=== PATIENT | male | born 1950 | race Caucasian/White ===

== ENCOUNTER 2018-06-05 14:25 | Emergency (ER) | payer MEDICARE, OTHER ==
[~2018-06-05] VITALS: Ht 182.9 cm; Wt 104.3 kg
--- NOTE | 2018-06-05 15:11 | NUR ---
pain and swelling to L wrist/FA s/p trip and fall while playing basketball. PT AAOX3, VSS. DENIES ANY OTHER DISCOMFORT @ THIS TIME. WILL CONT TO MONITOR.
--- NOTE | 2018-06-05 16:50 | NUR ---
Patient discharged to home in stable condition. Written and verbal after care instructions given. Patient verbalizes understanding of instruction. LT WRIST POSTERIOR SPLINT INTACT W/ GOOD CMS. PT STABLE, NAD UPON LEAVING ED.
[2018-06-05 16:53] VITALS: BP 128/75
== END 2018-06-05 16:54 | disposition home or self-care (01) ==
LOC: ER 14:30
DX: S52.592A Other fractures of lower end of left radius, initial encounter for closed fracture (principal); W01.0XXA Fall on same level from slipping, tripping and stumbling without subsequent striking against object, initial encounter; Y93.64 Activity, baseball; Y92.89 Other specified places as the place of occurrence of the external cause; Y99.8 Other external cause status
CPT/HCPCS: 73110; 73130-TC; A4606; L3763; Z7610